=== PATIENT | female | born 1955 | race Caucasian/White ===

== ENCOUNTER 2025-01-03 16:07 | Emergency (ER) | payer MEDICARE, OTHER ==
[~2025-01-03] VITALS: Ht 167.6 cm; Wt 68.0 kg
[2025-01-03 16:08] VITALS: O2SAT 100
[2025-01-03] MEDS ORDERED: HYDR-4001 MT (19:33)
[2025-01-03] MEDS ORDERED: LIDO700A30 TP (19:40)
[2025-01-03 20:26] VITALS: BP 174/72; PULSE 73; RESP 20; TEMP 36.8; O2SAT 98
== END 2025-01-03 20:27 | disposition home or self-care (01) ==
LOC: ER 16:07
DX: M25.551 Pain in right hip (principal); M25.552 Pain in left hip; E11.9 Type 2 diabetes mellitus without complications; E78.00 Pure hypercholesterolemia, unspecified; I10 Essential (primary) hypertension
CPT/HCPCS: 73502; 99283